=== PATIENT | male | born 1995 | race Caucasian/White ===

== ENCOUNTER 2019-02-03 07:38 | Emergency (ER) | payer BC ==
[~2019-02-03] VITALS: Ht 180.3 cm; Wt 86.9 kg
[~2019-02-03 07:38] MED LIST: IBUP-1542 PO
[2019-02-03 07:40] VITALS: BP 140/70; PULSE 87; RESP 18; Ht 180.3 cm; Wt 86.9 kg
[2019-02-03] MEDS ORDERED: IBUP-1542 PO (07:57)
--- NOTE | 2019-02-03 07:59 | ERD ---
ER Documentation Chief Complaint Chief Complaint back pain x last night HPI 23-year-old male presents the emergency department complaining of bilateral flank and back pain. Patient states he was in his usual state of health until approximately 5 AM this morning at which time he began having the acute onset of a nonspecific poorly localized bilateral flank pain. He states he had mild nausea but no fevers or chills. Pain was not colicky or significantly severe and it did not radiate. He said it was associated with a "sniffles" but no cough or fever. He reported no hematuria or other symptoms. Patient denies any fevers, chills, bowel or bladder incontinence. ROS All systems reviewed and are negative except as per history of present illness. Medications Home Meds Active Scripts Ibuprofen* (Ibuprofen*) 600 Mg Tablet, 600 MG PO Q6H PRN for PAIN, #30 TAB Prov:CHRISTINE SOLIZ 02/03/19 Ibuprofen* (Ibuprofen*) 600 Mg Tablet, 600 MG PO Q6, #30 TAB Prov:MARTHA CALVIN PA-C 05/25/15 Allergies Allergies: Coded Allergies: No Known Drug Allergy (Verified Allergy, Unknown, 05/25/15) PMhx/Soc History of Surgery: Yes (LAP JARET, LEFT EYE) Anesthesia Reaction: No Hx Neurological Disorder: No Hx Respiratory Disorders: No Hx Cardiac Disorders: No Hx Psychiatric Problems: No Hx Miscellaneous Medical Probl: No Hx Alcohol Use: No Hx Substance Use: No Hx Tobacco Use: No FmHx Noncontributory for chief complaint Physical Exam Vitals Vital Signs Date Temp Pulse Resp B/P (MAP) Pulse Ox O2 O2 Flow FiO2 Time Delivery Rate 02/03/19 98.2 87 18 140/70 99 07:40 (93) Physical Exam GENERAL: The patient is well developed and appropriate for usual state of health in no apparent distress HEENT: Pupils equal, round, and reactive to light. EOMI. There is no scleral icterus. NECK: C-spine is soft and supple, there is no meningismus. There is no cervical lymphadenopathy. LUNGS: Clear to auscultation bilaterally. There are no rales, wheezes or rhonchi. HEART: Regular rate and rhythm, no murmurs, clicks, rubs or gallops. ABDOMEN: Soft, non-tender, non-distended. There are bowel sounds in all four quadrants. No rebound or guarding. No CVA tenderness EXTREMITIES: There is no peripheral cyanosis or edema. No focal swelling or erythema. NEURO: The patient moves all four extremities with 5/5 strength. Cranial nerves II - XII are intact. Normal gait. Alert and oriented SKIN: There is no apparent rash or petechiae. HEME/LYMPHATIC: There is no evidence of excessive bruising or lymphedema. PSYCHIATRIC: The patient does not appear anxious or depressed. Procedures/MDM Patient was taken to a room, seen and examined Medical decision m[age]-year-old male presents with bilateral flank pain of uncertain etiology. Patient has no risk factors for, or clinical evidence of, kidney stones or other pathology. His abdominal examination is benign with no evidence of cholecystitis, appendicitis or other high-risk intra-abdominal concerns. His back examination shows no midline spinal tenderness or significant evidence of trauma and he has no evidence of neurologic dysfunction. Overall, patient appears to be clinically nontoxic and appropriate for outpatient management at this time with pain management. Departure Diagnosis: Primary Impression: Back pain Condition: Stable Patient Instructions: Back Pain (Acute Or Chronic) Referrals: KAT ADAMS MD (PCP) Additional Instructions: Please see your doctor if not improved the next 2 to 3 days. CHRISTINE SOLIZ Feb 03, 2019 07:59
== END 2019-02-03 08:24 | disposition home or self-care (01) ==
LOC: FTE 07:38
DX: M54.9 Dorsalgia, unspecified (principal)
CPT/HCPCS: 99282